=== PATIENT | female | born 1995 | race Caucasian/White ===

== ENCOUNTER 2024-03-20 12:57 | Outpatient (CLI) | payer OTHER, SELFPAY ==
--- NOTE | ~2024-03-20 | US_ITS ---
Pelvic ultrasound. Clinical History: First trimester , status dates and viability Technique: Realtime transabdominal and transvaginal scanning of the pelvis was performed. Color flow Doppler and Doppler spectral analysis were performed. Findings: The uterus is anteverted, and contains an intrauterine gestation. Santo-rump length of 3.2 cm corresponds to an estimated gestational age of 10 weeks 1 day. heart rate is 154 bpm. Neither ovary seen. No adnexal mass seen. There is no evidence of free fluid in the cul de sac. Impression: Live intrauterine gestation, with estimated gestational age of 10 weeks 1 day. heart rate is 15 4 bpm. Sonographic DAMON is 10/15/2024. Reviewed, dictated and finalized at location . [facility] [employer] Impression: Live intrauterine gestation, with estimated gestational age of 10 weeks 1 day. heart rate is 154 bpm. Sonographic DAMON is 10/15/2024.
== END 2024-03-20 12:58 | disposition home or self-care (01) ==
LOC: MICIMG 13:00
PROVIDERS: PCP Nurse Practitioner Women's Health; Visit Provider Nurse Practitioner Women's Health
DX: O36.80X0 Pregnancy with inconclusive fetal viability, not applicable or unspecified (principal); Z3A.00 Weeks of gestation of pregnancy not specified; R10.2 Pelvic and perineal pain
CPT/HCPCS: 76801

== ENCOUNTER 2024-05-24 15:04 | Outpatient (CLI) | payer OTHER, SELFPAY ==
--- NOTE | ~2024-05-24 | US_ITS ---
EXAMINATION: US OB /maternal detail DATE: 05/25/2024 10:54 CDT INDICATION: Anatomy scan TECHNIQUE: Real-time transabdominal obstetric ultrasound. FINDINGS: 1 There is a single intrauterine gestation in variable presentation. The placenta is anterior, with the tip of the placenta approximately 5 cm from the cervix. The cervix measures 3.3 cm in length. cardiac activity and movement is noted with a heart rate of 1 sites of delivery. Sh e'll also surgery for your due to please were images although correlation is made for surgical pathol ogy reports were 2 straw was significantly H is a moderate right-sided to relieve is always is orbita l OL mentality abdomen was in general surgery is identified and S LA IS Y. Jessi fractures with chores will show wire was traversed by Dr. Hall with are worse an d curettes graduation cautery shoulder own 3 is finally, we were Seen only graduation recent are indicated in the other guys this client within this is greatest that we have, related to uterine echo revealed all show a white differential partially well tortuous no ra shes L administration D residency is no audible murmurs straightening and short-worse [facility] hospital was performed or expiration. The dose hours 20 hours a week minimally delayed washout from year. Indication right eyeball. This loculated serial 145 beats per minute. Anatomic parameters are as follows The bladder is visualized and is unremarkable. A three-vessel cord is present. Cord is clearly demonstrated to be on the midline on the submitted images. Bilateral kidneys are present without hydronephrosis. The anterior and posterior margins of the diaphragm are continuous. The cervical, thoracic and lumbar spines are covered in their entirety. choroid plexi are visualized, and unremarkable. Lateral ventricles are visualized measuring 5.8 and 6.0 mm respectively. The falx is visualized. The cerebellum is visualized measuring 19.5 mm, and is sonographically unremarkable. The cisterna magna measures 2.9mm in anterior to posterior dimension (normal measurement is 2 to 10 m m). The nuchal fold measures 4.7mm (greater than 6 mm is considered abnormal). Cine of the four-chamber heart is visualized and is anatomic. Both the right and left ventricular outflow tracts are identified via cine and are unremarkable. Limited views of the arms, hands, legs and feet were performed and appear grossly unremarkable. Cine evaluation of the upper lip and nose was performed to confirm their continuity. The following biometric data (BPD): 4.5 cm; head circumference (HC): 17 cm; abdominal circumference (AC): 14 cm; femur length (FL): 2.9 cm. These measurements are concordant. Estimated weight is 290.3 g +/- 43 g, which correlates with the 44th percentile when 10/15/2024 i s used as estimated date of delivery. As single measurements, these parameters are each equal to the following estimated gestational ages: BPD: 19 weeks 4 days. HC: 19 weeks 2 days. AC: 19 weeks 5 days. FL: 19 weeks 0 days. estimated gestational age based solely on measurements from this exam is 19 weeks 3 days +/- 1 week 3 days. IMPRESSION: Single intrauterine gestation with an approximate gestational age of 19 weeks and 3 days. Estimated d ue date by ultrasound is 10/15/2024. Anatomy scan (as detailed above) is normal, as detailed above. Reviewed, dictated and finalized at location A. IMPRESSION: Single intrauterine gestation with an approximate gestational age of 19 weeks a nd 3 days. Estimated due date by ultrasound is 10/15/2024. Anatomy scan (as detailed above) is normal, as detailed above.
== END 2024-05-24 15:05 | disposition home or self-care (01) ==
LOC: MICIMG 15:05
PROVIDERS: PCP Obstetrics & Gynecology Gynecology; Visit Provider Obstetrics & Gynecology Gynecology
DX: Z36.9 Encounter for antenatal screening, unspecified (principal)
CPT/HCPCS: 76805